=== PATIENT | female | born 1970 | race Caucasian/White ===

== ENCOUNTER 2020-11-08 18:42 | Emergency (ER) | payer OTHER ==
[~2020-11-08 18:42] MED LIST: AMARYL4 MG PO; AZITHROMYCIN500 MG PO; BACTRIM DS TAB1 EACH PO; BASAGLAR K100 UNIT/1 SC; Bromphed DM PO; CEFUROXIME500 MG PO; CLEOCIN HCL300 MG PO; COMBIVENT0.074 GM/I INH; COZAAR100 MG PO; COZAAR25 MG PO; CYCLOBENZAPRINE10 MG PO; CYMBALTA60 MG PO; ECOTRIN81 MG PO; ELAVIL 25 MG TA25 MG PO; ETODOLAC400 MG PO; FISH OIL 1,0001 EAC3 PO; FLAGYL500 MG PO; IMDUR ER TAB 3030 MG PO; INVOKANA100 MG PO; KEFLEX CAP 500500 MG PO; LIORESAL TAB 1010 MG PO; LIPITOR TAB 2020 MG PO; LOPRESSOR 25 MG25 MG PO; NITROSTAT0.4 MG SL; OMNICEF 300 MG300 MG PO; PROAIR HFA8.5 GM INH; ROBAXIN-750750 MG PO; TRAMADOL HCL50 MG PO; TRESIBA100 UNIT/1 SC; VENTOLIN HFA 66.7 GM INH
[2020-11-08] MEDS ORDERED: BACTRIM DS TAB1 EACH PO (22:23)
[2020-11-08] MEDS ORDERED: KEFLEX CAP 250250 MG PO (22:23)
== END 2020-11-08 22:38 | disposition home or self-care (01) ==
LOC: ER1 18:42
DX: L02.01 Cutaneous abscess of face (principal); E11.9 Type 2 diabetes mellitus without complications; F17.210 Nicotine dependence, cigarettes, uncomplicated; Z88.0 Allergy status to penicillin
CPT/HCPCS: 10060; 99282

== ENCOUNTER 2021-03-30 06:44 | Emergency (ER) | payer OTHER ==
[~2021-03-30 06:44] MED LIST changes: +KEFLEX CAP 250250 MG PO
[2021-03-30] MEDS ORDERED: NAPROXEN500 MG PO (08:06)
[2021-06-07] MEDS ORDERED: FLAGYL500 MG PO (16:51)
[2021-06-07] MEDS ORDERED: ZOFRAN4 MG PO (16:51)
[2021-06-07] MEDS ORDERED: BENTYL 20MG TAB20 MG PO (16:51)
== END 2021-03-30 08:15 | disposition home or self-care (01) ==
LOC: ER1 06:44
DX: M79.641 Pain in right hand (principal); E11.9 Type 2 diabetes mellitus without complications; I10 Essential (primary) hypertension; F17.210 Nicotine dependence, cigarettes, uncomplicated
CPT/HCPCS: 29125; 73130; 99283; J1885

== ENCOUNTER 2021-04-22 07:44 | Emergency (ER) | payer OTHER ==
[~2021-04-22 07:44] MED LIST changes: +NAPROXEN500 MG PO
[2021-04-22 08:28] LABS: HEMOGLOBIN 16.5 gm/dl (12.3-15.3); RED BLOOD COUNT 5.45 M/UL (4.00-5.10); WHITE BLOOD COUNT 7.2 K/UL (4.5-11.0)
[2021-04-22 09:03] LABS: BUN/CREATININE RATIO 15 (0-10)
[2021-06-07] MEDS ORDERED: BENTYL 20MG TAB20 MG PO (16:51)
[2021-06-07] MEDS ORDERED: FLAGYL500 MG PO (16:51)
[2021-06-07] MEDS ORDERED: ZOFRAN4 MG PO (16:51)
== END 2021-04-22 11:40 | disposition home or self-care (01) ==
LOC: ER1 07:44
PROVIDERS: Emergency Medicine
DX: I10 Essential (primary) hypertension (principal); R51.9 Headache, unspecified
CPT/HCPCS: 70450; 71045; 80053; 82550; 82553; 83874; 84484; 85025; 93005; 99284

== ENCOUNTER 2021-06-06 17:48 | Emergency (ER) | payer OTHER ==
[2021-06-06 18:45] LABS: HEMOGLOBIN 16.2 gm/dl (12.3-15.3); RED BLOOD COUNT 5.59 M/UL (4.00-5.10); WHITE BLOOD COUNT 7.2 K/UL (4.5-11.0)
[2021-06-06 19:03] LABS: BUN/CREATININE RATIO 19 (0-10)
[2021-06-07] MEDS ORDERED: FLAGYL500 MG PO (16:51)
[2021-06-07] MEDS ORDERED: ZOFRAN4 MG PO (16:51)
[2021-06-07] MEDS ORDERED: BENTYL 20MG TAB20 MG PO (16:51)
== END 2021-06-06 18:20 | disposition home or self-care (01) ==
LOC: ER1 17:48
PROVIDERS: Physician Assistant Medical
DX: R10.84 Generalized abdominal pain (principal); R19.7 Diarrhea, unspecified; E11.9 Type 2 diabetes mellitus without complications; I10 Essential (primary) hypertension; Z90.49 Acquired absence of other specified parts of digestive tract; Z90.710 Acquired absence of both cervix and uterus; Z88.1 Allergy status to other antibiotic agents; Z88.8 Allergy status to other drugs, medicaments and biological substances; F17.210 Nicotine dependence, cigarettes, uncomplicated
CPT/HCPCS: 80053; 81001; 83605; 85025; 99284

== ENCOUNTER 2021-07-01 19:22 | Emergency (ER) | payer OTHER ==
[~2021-07-01 19:22] MED LIST changes: +BENTYL 20MG TAB20 MG PO; +ZOFRAN4 MG PO
== END 2021-07-01 22:25 | disposition home or self-care (01) ==
LOC: ER1 19:22
DX: J06.9 Acute upper respiratory infection, unspecified (principal); E11.9 Type 2 diabetes mellitus without complications; I10 Essential (primary) hypertension; Z88.0 Allergy status to penicillin; F17.210 Nicotine dependence, cigarettes, uncomplicated; Z20.822 Contact with and (suspected) exposure to COVID-19
CPT/HCPCS: 87420; 99283; U0002

== ENCOUNTER 2021-09-19 07:17 | Emergency (ER) | payer OTHER ==
[~2021-09-19] VITALS: Ht 157.5 cm; Wt 73.5 kg
[2021-09-19 08:03] LABS: HEMOGLOBIN 16.8 gm/dl (12.3-15.3); RED BLOOD COUNT 5.62 M/UL (4.00-5.10); WHITE BLOOD COUNT 4.9 K/UL (4.5-11.0)
[2021-09-19 08:53] LABS: BUN/CREATININE RATIO 20 (0-10)
== END 2021-09-19 12:15 | disposition home or self-care (01) ==
LOC: ER1 07:17
PROVIDERS: Student in an Organized Health Care Education/Training Program
DX: U07.1 COVID-19 (principal); Z23 Encounter for immunization; F17.210 Nicotine dependence, cigarettes, uncomplicated; E11.9 Type 2 diabetes mellitus without complications; I10 Essential (primary) hypertension; J44.9 Chronic obstructive pulmonary disease, unspecified; Z88.0 Allergy status to penicillin
CPT/HCPCS: 36600; 71045; 80048; 82803; 85025; 94664; 99285; M0245; U0002

== ENCOUNTER 2022-04-22 00:07 | Inpatient (IN) | payer OTHER ==
[~2022-04-22] VITALS: Ht 157.5 cm; Wt 71.7 kg
[~2022-04-22 00:07] MED LIST changes: -COZAAR25 MG PO
[2022-04-22 00:44] LABS: HEMOGLOBIN 16.8 gm/dl (12.3-15.3); RED BLOOD COUNT 5.5 M/UL (4.00-5.10); WHITE BLOOD COUNT 8.6 K/UL (4.5-11.0)
[2022-04-22 01:05] LABS: BUN/CREATININE RATIO 20 (0-10)
[2022-04-22] MEDS ORDERED: ASPIRIN EC81 MG PO (14:33)
== END 2022-04-22 18:19 | disposition short-term general hospital (02) | DRG 281 ==
LOC: ER1 00:07 → PROG CARE 02:13 → CDU 02:13 → PROG CARE 04:18
PROVIDERS: Physician Assistant; ADMIT Internal Medicine
PROC: 4A023N7 Measurement of Cardiac Sampling and Pressure, Left Heart, Percutaneous Approach (ICD-10-PCS; principal; 2022-04-22)
PROC: B2111ZZ Fluoroscopy of Multiple Coronary Arteries using Low Osmolar Contrast (ICD-10-PCS; 2022-04-22)
PROC: B2151ZZ Fluoroscopy of Left Heart using Low Osmolar Contrast (ICD-10-PCS; 2022-04-22)
PROC: B24BZZZ Ultrasonography of Heart with Aorta (ICD-10-PCS; 2022-04-22)
DX: I21.4 Non-ST elevation (NSTEMI) myocardial infarction (principal); I16.1 Hypertensive emergency; I10 Essential (primary) hypertension; I16.0 Hypertensive urgency; M79.7 Fibromyalgia; F17.200 Nicotine dependence, unspecified, uncomplicated; I25.5 Ischemic cardiomyopathy; K57.90 Diverticulosis of intestine, part unspecified, without perforation or abscess without bleeding; Z20.822 Contact with and (suspected) exposure to COVID-19; I25.10 Atherosclerotic heart disease of native coronary artery without angina pectoris; E11.65 Type 2 diabetes mellitus with hyperglycemia; Z86.73 Personal history of transient ischemic attack (TIA), and cerebral infarction without residual deficits; Z95.5 Presence of coronary angioplasty implant and graft; Z86.16 Personal history of COVID-19; Z88.8 Allergy status to other drugs, medicaments and biological substances; Z98.51 Tubal ligation status; Z82.49 Family history of ischemic heart disease and other diseases of the circulatory system; Z90.710 Acquired absence of both cervix and uterus; Z90.49 Acquired absence of other specified parts of digestive tract; Z98.890 Other specified postprocedural states; Z88.0 Allergy status to penicillin; Z90.89 Acquired absence of other organs
CPT/HCPCS: ECHO; 36415; 71045; 80053; 80061; 82550; 82553; 82962; 83036; 83690; 84484; 85025; 85379; 85610; 85730; 93005; 93306; 96374; 99152; 99153; 99285; C1769; C1887; C1894; J1644; J2250; J2405; J3010; J7040; Q9967; U0002

== ENCOUNTER 2022-06-03 11:13 | Inpatient (IN) | payer OTHER ==
[~2022-06-03] VITALS: Ht 157.5 cm; Wt 72.8 kg
[~2022-06-03 11:13] MED LIST changes: +ASPIRIN EC81 MG PO
[2022-06-03 12:22] LABS: HEMOGLOBIN 16.4 gm/dl (12.3-15.3); RED BLOOD COUNT 5.46 M/UL (4.00-5.10); WHITE BLOOD COUNT 6.7 K/UL (4.5-11.0)
[2022-06-03 12:52] LABS: BUN/CREATININE RATIO 22 (0-10)
[2022-06-03] MEDS ORDERED: LASIX TAB 20 MG20 MG PO (17:02)
[2022-06-03] MEDS ORDERED: ATORVASTATIN CA20 MG PO (17:03)
[2022-06-03] MEDS ORDERED: CLOPIDOGREL75 MG PO (17:03)
[2022-06-03] MEDS ORDERED: LANTUS SOL100 UNIT/1 SQ (17:04)
[2022-06-03] MEDS ORDERED: NITROGLYCERIN0.4 MG SL (17:05)
[2022-06-03] MEDS ORDERED: HUMALOG100 UNIT/3 SC (17:19)
[2022-06-04 04:49] LABS: HEMOGLOBIN 15.4 gm/dl (12.3-15.3); RED BLOOD COUNT 5.15 M/UL (4.00-5.10); WHITE BLOOD COUNT 7.2 K/UL (4.5-11.0)
[2022-06-04 05:05] LABS: BUN/CREATININE RATIO 19 (0-10)
[2022-06-05 05:03] LABS: HEMOGLOBIN 15.1 gm/dl (12.3-15.3); RED BLOOD COUNT 5.1 M/UL (4.00-5.10)
[2022-06-05 05:28] LABS: BUN/CREATININE RATIO 15 (0-10)
[2022-06-07 03:09] LABS: HEMOGLOBIN 14.9 gm/dl (12.3-15.3); RED BLOOD COUNT 5.1 M/UL (4.00-5.10); WHITE BLOOD COUNT 7.2 K/UL (4.5-11.0)
[2022-06-07 03:43] LABS: BUN/CREATININE RATIO 18 (0-10)
[2022-06-07] MEDS ORDERED: COZAAR 25MG TAB25 MG PO (11:26)
[2022-06-07] MEDS ORDERED: CARVEDILOL25 MG PO (11:26)
[2022-06-07] MEDS ORDERED: ZOFRAN 4 MG TAB4 MG PO (11:26)
[2022-06-07] MEDS ORDERED: WARFARIN SODIUM5 MG PO (11:26)
[2022-06-07] MEDS ORDERED: ATORVASTATIN CA20 MG PO (11:26)
[2022-06-07] MEDS ORDERED: ISOSORBIDE MONO30 MG PO (11:26)
[2022-06-07] MEDS ORDERED: PROTONIX 40 MG40 M1 PO (11:26)
== END 2022-06-07 11:58 | disposition home or self-care (01) | DRG 282 ==
LOC: ER1 11:13 → PROG CARE 17:02
PROVIDERS: Nurse Practitioner; ADMIT Internal Medicine
PROC: 4A023N7 Measurement of Cardiac Sampling and Pressure, Left Heart, Percutaneous Approach (ICD-10-PCS; principal; 2022-06-03)
PROC: B2121ZZ Fluoroscopy of Single Coronary Artery Bypass Graft using Low Osmolar Contrast (ICD-10-PCS; 2022-06-03)
PROC: B2111ZZ Fluoroscopy of Multiple Coronary Arteries using Low Osmolar Contrast (ICD-10-PCS; 2022-06-03)
PROC: B24BZZZ Ultrasonography of Heart with Aorta (ICD-10-PCS; 2022-06-04)
DX: I21.4 Non-ST elevation (NSTEMI) myocardial infarction (principal); I25.110 Atherosclerotic heart disease of native coronary artery with unstable angina pectoris; R11.2 Nausea with vomiting, unspecified; E11.9 Type 2 diabetes mellitus without complications; I10 Essential (primary) hypertension; E78.5 Hyperlipidemia, unspecified; D75.1 Secondary polycythemia; F17.210 Nicotine dependence, cigarettes, uncomplicated; Z95.1 Presence of aortocoronary bypass graft; Z88.1 Allergy status to other antibiotic agents; Z88.0 Allergy status to penicillin; Z88.8 Allergy status to other drugs, medicaments and biological substances; Z82.49 Family history of ischemic heart disease and other diseases of the circulatory system; Z79.82 Long term (current) use of aspirin; I25.2 Old myocardial infarction
CPT/HCPCS: 36415; 71045; 78264; 80048; 80053; 81001; 82550; 82553; 82962; 83036; 83735; 83880; 84484; 85025; 85610; 85730; 93005; 93308; 96374; 99152; 99153; 99285; A9541; C1760; C1769; C1894; C9113; J1644; J2250; J2405; J2550; J3010; J3475; J7040; Q9957; Q9967; U0002